=== PATIENT | female | born 1985 | race Caucasian/White ===

== ENCOUNTER 2019-10-13 20:09 | Emergency (ER) | payer BC ==
[~2019-10-13] VITALS: Ht 162.6 cm; Wt 93.2 kg
[~2019-10-13 20:09] MED LIST: ALBUTEROL0.83 MG/ML IH; MOTRIN 800800 MG/TAB PO; PERCOCET 325 MG1 TA2 PO; PREDNISONE20 MG PO; PROAIR HFA0.09 MG/AC IH; RT ADVAIR 228 DISKUS IH; XOPENEX1.25 MG/3 IH
[2019-10-13 20:37] VITALS: BP 140/72; TEMP 98
[2019-10-14 02:04] VITALS: PULSE 57
== END 2019-10-14 02:04 | disposition home or self-care (01) ==
LOC: COL.ER 20:09
DX: R44.8 Other symptoms and signs involving general sensations and perceptions (principal); J45.909 Unspecified asthma, uncomplicated

== ENCOUNTER → 2020-02-24 | Outpatient (CLI) | payer BC | LOC: ZCOL.LAB 10:02 | DX: Z20.828 Contact with and (suspected) exposure to other viral communicable diseases (principal) ==

== ENCOUNTER → 2020-05-07 | Outpatient (CLI) | payer BC | LOC: COL.LAB 13:20 | DX: Z20.828 Contact with and (suspected) exposure to other viral communicable diseases (principal) ==

== ENCOUNTER → 2020-07-09 | Outpatient (CLI) | payer BC | LOC: COL.LAB 10:19 | DX: U07.1 COVID-19 (principal) ==